=== PATIENT | male | born 1980 | race Two or more races ===

== ENCOUNTER 2024-01-01 07:33 | Day surgery (SDC) | payer BC, OTHER ==
[~2024-01-01 07:33] MED LIST: Sodium Chloride 0.9% 10 ML Syringe FLUSH PRN; Sodium Chloride 0.9% 10 ML Syringe FLUSH SCH
[2024-01-01] MEDS: Lactated Ringers 1,000 ML IV SCH (07:55)
[2024-01-01] MEDS ORDERED: Propofol 200 MG/20 ML SDV ONE ×2 (08:06→09:15)
[2024-01-01] MEDS ORDERED: Metoprolol Tartrate 5 MG/5 ML SDV ONE (08:40)
[2024-01-01] MEDS ORDERED: Ondansetron 4 MG/2 ML SDV IVPUSH PRN (09:37)
[2024-01-01] MEDS ORDERED: HYDROmorphone 0.5 MG/0.5 ML Syringe IVPUSH PRN (09:37)
[2024-01-01] MEDS ORDERED: fentaNYL 100 MCG/2 ML SDV IVPUSH PRN (09:37)
[2024-01-01 13:22] VITALS: BP 119/66; PULSE 80
== END 2024-01-01 13:12 | disposition home or self-care (01) ==
LOC: JD.SDS 07:33
PROVIDERS: ATTEND Surgery
DX: C18.7 Malignant neoplasm of sigmoid colon (principal); D12.4 Benign neoplasm of descending colon; K51.40 Inflammatory polyps of colon without complications; I10 Essential (primary) hypertension; Z79.899 Other long term (current) drug therapy
CPT/HCPCS: 45381; 45385; J2704; J3490; J7120; 00811

== ENCOUNTER 2024-03-22 19:29 | Emergency (ER) | payer OTHER ==
[2024-03-22 20:03] VITALS: BP 129/99; PULSE 76
== END 2024-03-22 21:49 | disposition home or self-care (01) ==
LOC: JD.ED 19:29 → MERGE 19:29 → JD.ED 21:49
DX: K94.00 Colostomy complication, unspecified (principal); Z93.3 Colostomy status; E66.9 Obesity, unspecified; Z90.49 Acquired absence of other specified parts of digestive tract; Z68.32 Body mass index [BMI] 32.0-32.9, adult
CPT/HCPCS: 99282

== ENCOUNTER 2024-03-27 11:28 | Emergency (ER) | payer OTHER ==
[2024-03-27 20:51] VITALS: BP 110/78; PULSE 90
== END 2024-03-27 14:19 | disposition home or self-care (01) ==
LOC: JD.ED 11:28
DX: K94.03 Colostomy malfunction (principal); I10 Essential (primary) hypertension; E66.9 Obesity, unspecified; Z90.49 Acquired absence of other specified parts of digestive tract; Z79.899 Other long term (current) drug therapy
CPT/HCPCS: 99282; 99283

== ENCOUNTER 2024-12-09 13:21 | Emergency (ER) | payer OTHER ==
[2024-12-09 15:24] LABS: BASOPHILS ABSOLUTE AUTO 0.1 K/mm3 (0.0-0.2); BASOPHILS PERCENT AUTO 0.7 % (0.0-1.0); EOSINOPHILS ABSOLUTE AUTO 0.2 K/mm3 (0.0-0.4); EOSINOPHILS PERCENT AUTO 2.3 % (0.0-6.0); HEMOGLOBIN 12.1 gm/dl (14.0-18.0); IMMATURE GRAN ABSOLUTE AUTO 0.06 K/mm3 (0.00-0.05); IMMATURE GRAN PERCENT AUTO 0.7 % (0.0-0.4); LYMPHOCYTES ABSOLUTE AUTO 1.5 K/mm3 (1.0-4.8); LYMPHOCYTES PERCENT AUTO 17.1 % (24.0-44.0); MEAN CORPUSCULAR HEMOGLOBIN 21.1 pg (28.0-32.0); MEAN CORPUSCULAR HGB CONC 29.5 g/dl (32.0-36.0); MEAN CORPUSCULAR VOLUME 71.4 fl (83.0-99.0); MEAN PLATELET VOLUME 10.1 fl (9.4-12.4); MONOCYTES ABSOLUTE AUTO 0.8 K/mm3 (0.0-0.8); MONOCYTES PERCENT AUTO 8.8 % (0.0-8.0); NEUTROPHILS ABSOLUTE AUTO 6.1 K/mm3 (1.8-7.7); NEUTROPHILS PERCENT AUTO 70.4 % (41.0-71.0); PLATELET COUNT,PLT 219 K/mm3 (150-400); RED BLOOD CELL COUNT 5.74 M/mm3 (4.52-5.90); WHITE BLOOD CELL COUNT,WBC 8.62 K/mm3 (3.9-11.3)
[2024-12-09 15:50] LABS: ALBUMIN 3.5 g/dl (3.4-5.0); ANION GAP 11.1 (5-15); BILIRUBIN TOTAL 1.2 mg/dL (0.2-1.0); BUN/CREATININE RATIO 21.3 (14-18); CALCIUM 8.6 mg/dL (8.5-10.1); CREATININE 0.8 mg/dL (0.7-1.3); EST CRCL DRUG DOSING (CG) 119.13 mL/min; POTASSIUM,K 4.1 mEq/L (3.5-5.1); PROTEIN TOTAL,TP 7.1 g/dl (6.4-8.2)
[2024-12-09 16:05] VITALS: BP 118/71; PULSE 71
== END 2024-12-09 16:08 | disposition home or self-care (01) ==
LOC: JD.ED 13:21
DX: S29.011A Strain of muscle and tendon of front wall of thorax, initial encounter (principal); I10 Essential (primary) hypertension; E66.9 Obesity, unspecified; Z79.899 Other long term (current) drug therapy; Z90.49 Acquired absence of other specified parts of digestive tract; W19.XXXA Unspecified fall, initial encounter
CPT/HCPCS: 36415; 71046; 71046-26; 80053; 84484; 85025; 93005; 99285

== ENCOUNTER 2025-01-05 08:28 | Day surgery (SDC) | payer OTHER ==
[2025-01-05] MEDS ORDERED: propofoL 500 MG/50 ML 50 ML ONE (09:18)
[2025-01-05] MEDS ORDERED: Lidocaine 1% 4 ML ONE (09:18)
[2025-01-05] MEDS ORDERED: fentaNYL 100 MCG/2 ML SDV ONE (09:20)
[2025-01-05] MEDS: Lactated Ringers 1,000 ML IV SCH (09:25)
[2025-01-05] MEDS ORDERED: Metoprolol Tartrate 5 MG/5 ML SDV ONE (10:00)
[2025-01-05 12:06] VITALS: BP 130/78; PULSE 78
== END 2025-01-05 11:35 | disposition home or self-care (01) ==
LOC: JD.SDS 08:28
PROVIDERS: ATTEND Surgery
DX: Z12.11 Encounter for screening for malignant neoplasm of colon (principal); Z85.038 Personal history of other malignant neoplasm of large intestine; D12.8 Benign neoplasm of rectum; I48.91 Unspecified atrial fibrillation; I10 Essential (primary) hypertension; Z87.891 Personal history of nicotine dependence; Z79.01 Long term (current) use of anticoagulants; Z79.899 Other long term (current) drug therapy
CPT/HCPCS: 45380; J2003; J2704; J3010; J3490; J7120; 00811